=== PATIENT | male | born 1935 | race Caucasian/White ===

== ENCOUNTER 2016-04-06 09:32 | Emergency (ER) | payer MEDICARE ==
[2016-04-06 09:58] VITALS: BP 137/62
--- NOTE | 2016-04-06 10:10 | ED ---
Upper Extremity Pain - HPI Summary HPI Summary: complaint of left elbow pain started approx 1 week ago pain started in the end of his elbow now the pain has increased and spread into his forearm and went to urgent care in [place] and they wrapped his arm in tereza bandage- dx with bursitis following that his arm is getting more swollen and painful now is spreading into his upper arm elbow feels hot denies fever and chills did some heavy lifting of a matteress before it started using an ice pack has been taking tylnol 3 with minimal relief - History of Current Complaint Chief Complaint: UCUpperExtremity Stated Complaint: ARM COMPLAINT Time Seen by Provider: 04/06/16 10:03 Aggravating Factor(s): Movement Alleviating Factor(s): Ice Associated Signs & Symptoms: Positive: Swelling, Redness - Allergies/Home Medications Allergies/Adverse Reactions: Allergies Allergy/AdvReac Type Severity Reaction Status Date / Time Ibuprofen Allergy Hives Verified 04/06/16 09:39 Home Medications: Home Medications Aspirin Low Dose CHEW TAB* [Aspirin Low Dose TAB*] 81 mg PO DAILY 04/06/16 [ History Confirmed 04/06/16] Gabapentin CAP(*) [Neurontin 300 CAP(*)] 600 mg PO TID 04/06/16 [History Confirmed 04/06/16] Glucosamine-Chondroitin [Glucosamine & Chondroitin 500-400 mg] 2 tab PO DAILY [History Confirmed 04/06/16] Hydrochlorothiazide TAB* [Hydrodiuril TAB*] 25 mg PO DAILY 04/06/16 [History Confirmed 04/06/16] Insulin GLARGINE(*) [Lantus(*)] 20 - 22 units BEDTIME 04/06/16 [History Confirmed 04/06/16] Insulin Lispro [Humalog Kwikpen] unit SC 04/06/16 [History] Levothyroxine TAB* [Synthroid TAB*] 137 mcg PO 0800 04/06/16 [History Confirmed 04/06/16] Losartan TAB* [Cozaar TAB*] 100 mg PO DAILY 04/06/16 [History Confirmed 04/06/16 ] Magnesium Oxide (mg Supplement [Magnesium Oxide] 500 mg PO 04/06/16 [History] Methylcobalamine (NF) [B-12] 1,000 mcg SL DAILY 04/06/16 [History Confirmed ] Multiple Vitamin [Multi Vitamin] 1 PO DAILY 04/06/16 [History] Ropinirole TAB* [Requip TAB*] 0.5 mg PO BEDTIME 04/06/16 [History Confirmed ] Tamsulosin CAP* [Flomax CAP*] 0.4 mg PO DAILY 04/06/16 [History Confirmed ] traMADol TAB* [Ultram*] 1 tab PO PRN 04/06/16 [History] PMH/Surg Hx/FS Hx/Imm Hx Previously Healthy: Yes Endocrine/Hematology History: Reports: Hx Diabetes, Hx Thyroid Disease Cardiovascular History: Reports: Hx Hypertension Respiratory History: Denies: Hx Asthma, Hx Chronic Obstructive Pulmonary Disease (COPD) GI History: Denies: Hx Ulcer - Surgical History Surgery Procedure, Year, and Place: thriodecotomy, back sx times two, knee-l replacement. Infectious Disease History: Yes Infectious Disease History: Reports: Hx Shingles - 6-7 months ago Denies: Hx Hepatitis, Hx Human Immunodeficiency Virus (HIV), Traveled Outside the [place] in Last 30 Days - Family History Known Family History: Negative: Cardiac Disease, Hypertension, Diabetes - Social History Occupation: Retired Lives: With Family Alcohol Use: None Substance Use Type: Reports: None Smoking Status (MU): Never Smoked Tobacco Review of Systems Constitutional: Negative Eyes: Negative ENT: Negative Cardiovascular: Negative Respiratory: Negative Gastrointestinal: Negative Genitourinary: Negative Positive: Other - right arm pain Skin: Other - redness over right elbow Neurological: Negative Psychological: Normal All Other Systems Reviewed And Are Negative: Yes Physical Exam Triage Information Reviewed: Yes Vital Signs On Initial Exam: Initial Vitals Temp Pulse Resp BP Pulse Ox 97.7 F 72 18 137/62 97 04/06/16 09:50 04/06/16 09:50 04/06/16 09:50 04/06/16 09:50 04/06/16 09:50 Appearance: Positive: No Pain Distress, Well-Nourished Skin: Positive: Other - [id number] in area of edema and erythema on medial side of arm between upper nad lower amr, elbow joint edema- tenderness with movment and palpation Eyes: Positive: Normal, NAYELI Neck: Positive: Supple Respiratory/Lung Sounds: Positive: Clear to Auscultation Cardiovascular: Positive: RRR, Pulses are Symmetrical in both Upper and Lower Extremities. Negative: Murmur Abdomen Description: Positive: Nontender, Soft Bowel Sounds: Positive: Present Musculoskeletal: Positive: Other - see skin Neurological: Positive: Alert, Oriented to Person Place, Time Psychiatric: Positive: Normal AVPU Assessment: Alert Diagnostics - Vital Signs Vital Signs Temp Pulse Resp BP Pulse Ox 04/06/16 09:50 97.7 F 72 18 137/62 97 - Laboratory Lab Statement: Any lab studies that have been ordered have been reviewed, and results considered in the medical decision making process. Course/Dx - Course Course Of Treatment: exam completed will send for x-ray to evlautue swelling and possible trauma to elbow joint. x-ray shows osteporosis- no acute changes. will treat for cellulitis with followup in 2 days - Diagnoses Provider Diagnoses: Cellulitis - Physician Notifications Discussed Care Of Patient With: Dr Khanna Time Discussed With Above Provider: 11:11 Discharge - Discharge Plan Condition: Stable Disposition: HOME Prescriptions: Clindamycin Cap(NF) [Cleocin 300 mg Cap(NF)] 300 mg PO TID #21 cap Patient Education Materials: Cellulitis (ED) Referrals: Non Staff,Doctor [Primary Care Provider] - [facility] [place] [facility] [Outside] Additional Instructions: start antibiotic as directed please make an appointment to be evaluated by your primary care provider or return to urgent care in 2 days or sooner if area of redness increases, pain increases, or you develop a fever. CELLULITIS What is Cellulitis? Cellulitis is a bacterial infection of the skin and, sometimes, of the tissues beneath the skin. The skin normally has many types of bacteria on it, but intact skin is an effective barrier that keeps bacteria from entering and growing within the body. When there is a break in the skin, bacteria can enter the body and grow there, causing infection. The infection usually affects outer layers of the skin first, and then spreads deeper into body tissues. Cellulitis can affect any area of the body covered by skin, but it is most common on the face or lower part of the legs. Symptoms Might Include: Skin redness that increases in size as the infection spreads Tight, glossy, "stretched" appearance of the skin Pain or tenderness of the area The affected area may be warm or hot to the touch A thin red line (along a vein) from the cellulitis toward the heart Fever Chills, shaking Muscle aches pains Joint stiffness because of swelling around a joint Treatment Recommendations: The healthcare provider may have prescribed an antibiotic medicine. The medicine should be taken until it is completely gone, even if you are feeling better. If you stop taking the medicine early, the infection may not be completely gone, and the medication may not work the next time. If the infection is on your arm or leg, keep it elevated. You may use warm, wet compresses to relieve the pain and help healing. Soak a clean cloth in warm water, wring it out a little, and apply it to the affected site. Leave the soak in place for 15 minutes and repeat often throughout the day. Rest until the fever is gone and the pain and redness have lessened. You may take acetaminophen (Tylenol) for pain. These will help ease some of the symptoms but will not cure the infection. Call Your Doctor or Return Here IF: Your fever does not go down with treatment, or it increases to more than 101 F. You are not starting to get better with the treatment within 24 to 36 hours. You have increasing pain, swelling, or chills. You feel drowsy and lethargic, or you have vomiting or diarrhea. You find the redness is spreading or there are red streaks coming from the infected area. The joint or bone under the infected skin becomes painful after the skin has started to heal. You have any new symptoms that worry you.
--- NOTE | 2016-04-06 10:50 | RAD ---
HISTORY: Swelling and pain of the right elbow COMPARISONS: None VIEWS: 4, Frontal, lateral, and oblique views of the right elbow FINDINGS: BONE DENSITY: Normal. BONES: There is no displaced fracture. 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 ALIGNMENT: There is no dislocation. SOFT TISSUES: Unremarkable. OTHER FINDINGS: None. IMPRESSION: MILD DEGENERATIVE CHANGES. NO ACUTE OSSEOUS INJURY. IF SYMPTOMS PERSIST, RECOMMEND REPEAT IMAGING.
== END 2016-04-06 11:18 | disposition home or self-care (01) ==
LOC: UCEAST 09:32
DX: L03.114 Cellulitis of left upper limb (principal); I10 Essential (primary) hypertension; E11.9 Type 2 diabetes mellitus without complications; E07.9 Disorder of thyroid, unspecified; M81.0 Age-related osteoporosis without current pathological fracture; Z96.652 Presence of left artificial knee joint; Z79.82 Long term (current) use of aspirin; Z88.6 Allergy status to analgesic agent
CPT/HCPCS: 99212; G0463